=== PATIENT | female | born 1980 | race Caucasian/White ===

== ENCOUNTER → 2016-09-06 | Outpatient (CLI) | payer BC, OTHER ==
[~2016-09-06] MED LIST: CPH500CIP PO; ONDA8TAB13 PO; ONDA8TAB6 PO; OTC SLEEP AID; PREN1TAB19 PO
--- NOTE | 2016-09-06 12:06 | Diagnostic Imaging Report ---
PROCEDURE: US Thyroid. TECHNIQUE: Multiple real-time grayscale images were obtained of the thyroid in various projections. INDICATION: Followup nodules. COMPARISON: 02/04/2014. FINDINGS: The right thyroid lobe is 4.9 x 1.7 x 2 cm. The left lobe is 4.9 x 1.5 x 1.6 cm. There are two nodules with largely cystic appearance in the right lobe, one measuring 8 mm superiorly and the other measuring 6 mm inferiorly. Some solid component with internal flow is seen in the inferior right thyroid nodule. These appear slightly different from 2014 exam and could represent new nodules. The left lobe demonstrates no thyroid nodule. IMPRESSION: Nonspecific subcentimeter right thyroid predominantly cystic nodules seen. No dominant suspicious solid mass seen. Dictated by: Dictated on workstation # [id number]
== END ==
LOC: RAD 11:33
PROVIDERS: ATTEND Family Medicine
DX: E04.1 Nontoxic single thyroid nodule (principal)
CPT/HCPCS: 76536

== ENCOUNTER → 2018-03-14 | Outpatient (CLI) | payer BC | LOC: CARD 09:48 | PROVIDERS: ATTEND Family Medicine | DX: R01.1 Cardiac murmur, unspecified (principal); R00.2 Palpitations | CPT/HCPCS: 93306 ==

== ENCOUNTER → 2020-10-24 | Outpatient (CLI) | payer BC, OTHER ==
--- NOTE | 2020-10-24 13:02 | Diagnostic Imaging Report ---
INDICATION: ABDOMINAL PAIN TECHNIQUE: Multiple real-time collins scale sonographic images of the abdomen. CORRELATION STUDY: None FINDINGS: LIVER: Normal echotexture within the visualized portions of the liver. There is normal, hepatopedal direction of flow within the main portal vein. Liver length 17 cm. GALLBLADDER: No shadowing gallstones or pericholecystic fluid. There are a few small echogenic foci suggestive of polyps. The largest one has a somewhat stalk-like appearance and with central vascular blood flow measures 8 x 4 mm. COMMON BILE DUCT: Nondilated at 0.4 cm. PANCREAS: Limited in visualization. The visualized portions appearing unremarkable. SPLEEN: Normal in size. Small amount of perisplenic fluid. ABDOMINAL AORTA: Unremarkable. INFERIOR VENA CAVA: Limited in visualization. RIGHT KIDNEY: 12.0 x 5.0 x 4.5 cm. Unremarkable. LEFT KIDNEY: 9.3 x 4.7 x 4.1 cm. Unremarkable. OTHER: None. IMPRESSION: 1. No definitive shadowing gallstones. There is however presence of what appears to be probable gallbladder polyps. One is slightly prominent at approximately 8 mm with vascular blood flow. 2. Small amount of nonspecific perisplenic fluid. Dictated by: Dictated on workstation # [id number]
== END ==
LOC: RAD 08:45
PROVIDERS: ATTEND Family Medicine
DX: R10.9 Unspecified abdominal pain (principal)
CPT/HCPCS: 76700